=== PATIENT | male | born 1960 | race Caucasian/White ===

== ENCOUNTER 2016-09-03 15:53 | Emergency (ER) | payer BC, OTHER ==
[2016-09-03 17:23] VITALS: BP 152/100
--- NOTE | 2016-09-03 17:43 | UC ---
Respiratory Complaint HPI - History of Current Complaint Chief Complaint: UCGeneralIllness Stated Complaint: SINUS PRESSURE, SORE THROAT Time Seen by Provider: 09/03/16 17:36 Hx Obtained From: Patient Onset/Duration: Gradual Onset, Lasting Weeks - off/ on, Worse Since - this morning. Timing: Intermittent Episodes - 1-2 hours Severity Initially: Mild Severity Currently: None Character: Cough: Nonproductive - feels like "hairball" in the back of the throat Aggravating Factors: Nothing Alleviating Factors: Nothing Associated Signs And Symptoms: Positive: Nasal Congestion, Sinus Discomfort. Negative: Fever, Chills - Risk Factors Pulmonary Embolism Risk Factors: Negative Cardiac Risk Factors: Family History Pseudomonas Risk Factors: Negative Tuberculosis Risk Factors: Negative - Allergies/Home Medications Allergies/Adverse Reactions: Allergies Allergy/AdvReac Type Severity Reaction Status Date / Time No Known Allergies Allergy Verified 09/03/16 17:23 Home Medications: Home Medications NK [No Home Medications Reported] 09/03/16 [History Confirmed 09/03/16] PMH/Surg Hx/FS Hx/Imm Hx Previously Healthy: Yes Endocrine History Of: Denies: Diabetes Cardiovascular History Of: Denies: Hypertension - Surgical History Surgical History: Yes Surgery Procedure, Year, and Place: L leg surgery 2004, ACL repair 2001 - Family History Known Family History: Positive: Cardiac Disease - Social History Occupation: Employed Full-time Lives: With Family - Girlfriend Alcohol Use: Occasionally Substance Use Type: None Smoking Status (MU): Former Smoker Type: Cigarettes Have You Smoked in the Last Year: No - Immunization History Most Recent Influenza Vaccination: none Review of Systems ENT: Sore Throat, Nasal Discharge Neurological: Headache All Other Systems Reviewed And Are Negative: Yes Physical Exam Triage Information Reviewed: Yes Appearance: Well-Appearing, Well-Nourished, Obese Vital Signs: Initial Vital Signs Temp 98.6 F 09/03/16 17:16 Pulse 89 09/03/16 17:16 Resp 18 09/03/16 17:16 BP 152/100 09/03/16 17:16 Vital Signs Reviewed: Yes Eyes: Positive: Conjunctiva Clear ENT: Positive: Pharynx normal, Nasal congestion - with allergic changes, TMs normal Neck exam: Normal Neck: Positive: No Lymphadenopathy Respiratory Exam: Normal Cardiovascular Exam: Normal Musculoskeletal Exam: Normal Neurological Exam: Normal Psychological Exam: Normal Skin Exam: Normal Respiratory Course/Dx - Differential Dx/Diagnosis Differential Diagnosis/HQI/PQRI: Asthma, Sinusitis Provider Diagnoses: Allergic rhinitis. Sinus headache Discharge - Discharge Plan Condition: Stable Disposition: HOME Patient Education Materials: Allergic Rhinitis (ED) Referrals: Patrice Lombardi MD [Primary Care Provider] - 3 Days (Recheck your blood pressure. Do not take sudafed before the appointment) Additional Instructions: Your sinus headaches are due to the allergic congestion. Ask your girlfriend about sleep apnea with your snoring. [employer] SINUS RINSE: CHECK OUT AT [facility] Saline nasal wash helps with mucous, allergies and congestion. It can be used up to twice a day or only as needed. Use lukewarm tap water. It does not have to be sterilized or distilled water. Do 1/3 on each side and snort out of both nostrils. Repeat the process with 1/6 of the bottle on each side with snorting in between to finish the solution in the bottle
== END 2016-09-03 18:05 | disposition home or self-care (01) ==
LOC: UCCORT 15:53
DX: J30.9 Allergic rhinitis, unspecified (principal); R51 Headache; E66.9 Obesity, unspecified; Z87.891 Personal history of nicotine dependence
CPT/HCPCS: 99201; G0463